=== PATIENT | male | born 1955 | race Caucasian/White ===

== ENCOUNTER 2016-11-22 17:48 | Inpatient (IN) | payer OTHER ==
[2016-11-22] VITALS (8 sets, daily range): BP systolic 78–124; BP diastolic 44–72
[~2016-11-22] VITALS: Ht 175.3 cm; Wt 120.0 kg
--- NOTE | ~2016-11-22 | P ---
[facility] [place] [address] PROCEDURE REPORT Name: BERTIN CERNA Room #: 242-P ADM IN M.R.#: [id number] Admission: 11/22/16 Attend Phys: Flaco Cochran MD Discharge: Date of : 55 Report #: [id number] THIS REPORT FOR: //name// CC: Anibal Holt DATE OF SERVICE: 11/23/2016 PREPROCEDURE DIAGNOSIS: Ulceration with necrotic tissue at the right forearm following IV extravasation. POSTPROCEDURE DIAGNOSIS: Ulceration with necrotic tissue at the right forearm following IV extravasation. PROCEDURE PERFORMED: Surgical full-thickness debridement of necrotic tissue involving the right forearm. DESCRIPTION OF PROCEDURE: The patient was seen in the Intensive Care Unit with his family members and the at the bedside. The patient is unable to verbally consent as he has expressive aphasia. The has verbally consented to local debridement. The right forearm was prepped and draped in the usual sterile fashion and anesthetized with topical 2% lidocaine gel. A timeout procedure was undertaken, the site, the patient, and correct side were positively identified. DICTATION ENDS HERE <ELECTRONICALLY SIGNED> By: Macario Colunga MD 11/25/16 1539 [id number] Macario Colunga MD /nt
--- NOTE | ~2016-11-22 | 2DMMODE ---
[facility] [place] [address] 2 D/M-MODE ECHOCARDIOGRAM Name: BERTIN CERNA Room #: 242-P [facility] IN ..#: [id number] Admission: 11/22/16 Attend Phys: Flaco Cochran, Discharge: Date of : 55 Date of Service: 11/23/16 0804 Report #: [id number] THIS REPORT FOR: //name// APPROVED REPORT Study performed: 11/23/2016 07:13:34 EXAM: Comprehensive 2D, Doppler, and color-flow Echocardiogram Patient Location: ICU Room #: 242 Status: routine BSA: 2.26 HR: 71 bpm BP: 99/66 mmHg Rhythm: NSR Other Information Study Quality: Fair/limited windows/not all measurements taken Technically limited study due to no patient mobility/In ICU on trach/COPD/obesity. Indications Respiratory arrest. Hx: CAD, stents, CVA, COPD 2D Dimensions RVDd: 35.87 mm LVEF(%): 57.34 (>50%) IVSd: 12.89 (7-11mm) LVOT Diam: 21.22 (18-24mm) LVDd: 51.84 mm PWd: 11.91 (7-11mm) LVDs: 36.12 (25-40mm) Aortic Root: 35.38 mm Carlisle's LVEF: 57.34 % Volumes Left Atrial Volume (Systole) Single Plane 4CH: 43.09 mL Aortic Valve AoV Peak Ivan.: 1.49 m/s AO Peak Gr.: 8.89 mmHg LVOT Max P.42 mmHg LVOT Max V: 0.78 m/s JOSE JUAN Vmax: 1.84 cm2 Mitral Valve [facility] [place] [address] [place] [address] 2 D/M-MODE ECHOCARDIOGRAM Name: BERTIN CERNA Room #: 242-P [facility] IN ..#: [id number] Admission: 11/22/16 Attend Phys: Flaco Cochran, Discharge: Date of : 55 Date of Service: 11/23/16 0804 Report #: [id number] E/A Ratio: 1.3 MV Decel. Time: 213.89 ms MV E Max Ivan.: 0.64 m/s MV A Ivan.: 0.51 m/s MV PHT: 62.03 ms IVRT: 55.36 ms Pulmonary Valve PV Peak Ivan.: 1.41 m/s PV Peak Gr.: 8.00 mmHg Tricuspid Valve TR Peak Ivan.: 2.23 m/s RAP Estimate: 15.00 mmHg TR Peak Gr.: 19.93 mmHg PA Pressure: 35.00 mmHg Left Ventricle The left ventricle is normal size. Regional wall motion is not well visualized but grossly normal. There is normal left ventricular wall thickness. Left ventricular systolic function is normal. LVEF is 55%. The left ventricular diastolic function is normal. Right Ventricle The right ventricle is normal size. The right ventricular systolic function is normal. Atria The left atrium size is normal. The right atrium size is normal. Aortic Valve Aortic valve is calcified. No aortic regurgitation is present. There is no aortic valvular stenosis. Mitral Valve The mitral valve is normal in structure. Trace mitral regurgitation. No evidence of mitral valve stenosis. Tricuspid Valve The tricuspid valve is normal in structure. There is trace tricuspid regurgitation. The right atrial pressure is estimated at 15 mmHg. There is mild pulmonary hypertension with an estimated PAP of 35mmHg. Pulmonic Valve Pulmonic valve is not well visualized. [facility] [address] [place] [address] 2 D/M-MODE ECHOCARDIOGRAM Name: BERTIN CERNA Room #: 242-P [facility] IN .R.#: [id number] Admission: 11/22/16 Attend Phys: Flaco Cochran, Discharge: Date of : 55 Date of Service: 11/23/16 0804 Report #: [id number] Great Vessels The aortic root is normal in size. Ascending aorta is not well visualized. IVC is dilated and collapses <50% with inspiration. Pericardium There is no pericardial effusion. <Conclusion> Left ventricular systolic function is normal. Regional wall motion is not well visualized but grossly normal. LVEF is 55%. Normal diastolic function Aortic valve is calcified. No stenosis or insufficiency The mitral valve is normal in structure. No mitral insufficiency Pulmonary artery pressure of 35mmHg There is no pericardial effusion. <ELECTRONICALLY SIGNED> By: Jevon Brown MD, FACC 11/23/16803 3 3 Jevon Brown MD, FAC /INF
--- NOTE | ~2016-11-22 | H ---
[facility] [place] [address] HISTORY AND PHYSICAL Name: BERTIN CERNA Room #: 242-P ADM IN M.R.#: [id number] Admission: 11/22/16 Attend Phys: Flaco Cochran MD Discharge: Date of : 55 Report #: [id number] THIS REPORT FOR: //name// CC: Anibal Holt DATE OF SERVICE: 11/22/2016 ATTENDING PHYSICIAN: Flaco Cochran M.D. PRIMARY CARE PHYSICIAN: Talita Holt M.D., at [facility]. PRIMARY OBSTETRICS GYNECOLOGY MD: Enrique Noriega M.D. at [facility]. CHIEF COMPLAINT: Respiratory failure. HISTORY OF PRESENT ILLNESS: The patient is a 61-year-old male who recently suffered a large stroke and was taken to on 10/23/2016. He was in the ICU for 18 days and required intubation. At one point he was extubated but did get reintubated and then eventually he required a tracheostomy. He was taken to [facility] for acute care rehab on 11/10/2016. Initially, he was weaned off of the vent and was just using a trach shield. His daughter states that within the last 48 hours, he has had some respiratory distress. He started out on Monday on a trach shield and was having intermittent decreased oxygen saturations and required frequent suctioning. She said they were suctioning large amounts of thick albarran secretion. She said they were checking blood gases, but those results are not available on the records that they sent. She noticed in the last 24 hours that he seemed very altered and more lethargic. He did work with physical therapy and occupational therapy and speech therapy yesterday morning and actually was able to sit at the side of the bed with PT. His daughter noticed at that time that while he was sitting up he kept dozing off. By that afternoon, they thought that he was just fatigued, so the daughters left and came back about an hour later and when they walked in the room they stated his blood pressure was in the 40s and his oxygen was in the 40s and they called for help. The daughter states that after trying to get his blood pressure up with IV fluids and other means that the attempts were not successful and they eventually called EMS. He had been alert after his stroke, but did have some residual right sided hemiparesis and dysphagia and expressive aphasia, but he would be alert and try to write and was following all commands prior to this episode of lethargy and altered mental status. In the ER at [place] he was evaluated and his blood pressure did remain low and he has been started on vasopressors, he has been placed back on the ventilator. In the ER, they were suctioning some brown secretions that were reported to look like tube feeding. The daughter states that when he was at that he was treated for pneumonia. She also states that they had been using BiPAP on and off in the last [address] [address] HISTORY AND PHYSICAL Name: BERTIN CERNA Room #: 242-P [facility] IN M.R.#: [id number] Admission: 11/22/16 Attend Phys: Flaco Cochran MD Discharge: Date of : 55 Report #: [id number] She does not think that he was having any fevers. Currently, the family thinks that he is more alert from when prior to transfer, but that he is not back to baseline. 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 PAST SURGICAL PROCEDURES: Coronary stents x 4, tonsillectomy, cataract repair, trach placement, and recent thrombectomy for CVA. ALLERGIES: No known drug allergies. HOME MEDICATIONS: The list from [facility] was reviewed, but the medications have not been entered into the computer at this time. SOCIAL HISTORY: The patient had been living at home with his prior to his stroke. He is a smoker, was smoking 2-5 cigarettes per day prior to his stroke, but had been up to 2 packs per day at one point and he has been smoking since the age of 14. No history of alcohol or drug use. FAMILY HISTORY: Significant for diabetes and heart disease. REVIEW OF SYSTEMS: Unobtainable due to current intubation. PHYSICAL EXAMINATION: GENERAL: The patient is chronically ill-appearing male in no acute distress, currently in ICU on the ventilator. VITAL SIGNS: Temperature is 36.3, heart rate 62, respirations 24, blood pressure 93/54, oxygen 99% on 60% FiO2. HEENT: PERRLA. Sclerae is nonicteric. Oral mucosa is pink and moist. NECK: With trach tube in place and no JVD noted. CARDIOVASCULAR: Normal S1, S2. No murmurs, rubs or gallops. RESPIRATORY: Breath sounds are diminished in the bases, but otherwise clear. He is breathing comfortably with the ventilator. ABDOMEN: Obese, round, nontender, nondistended with hypoactive bowel sounds. VASCULAR: Feet are cool with pedal pulses of 1+ bilaterally. NEUROLOGIC: The patient opens his eyes to sound and follows some commands including hand grasp and giving a thumbs up on his left side, his right side is weak in the arm and leg. There is no facial asymmetry. SKIN: He does have a wound on his right forearm, apparently from a prior IV infiltration and there is no surrounding erythema or active drainage. There is also a stage III decubitus wound just above his gluteal fold. There is no surrounding erythema or drainage. Overall, his skin is pale. GENITOURINARY: He does have a Boston catheter draining clear yellow urine. [address] [address] HISTORY AND PHYSICAL Name: BERTIN CERNA Room #: 242-[facility] IN ..#: [id number] Admission: 11/22/16 Attend Phys: Flaco Cochran MD Discharge: Date of : 55 Report #: [id number] LABORATORY DATA AND DIAGNOSTICS: ABG showed a pH of 7.19, pCO2 of 63, pO2 106 and lactate of 1.07. BNP 211. UA showed 3+ protein, 3+ blood, no leukocyte esterase or wbc's. Sodium 148, potassium 4.8, BUN 126, creatinine 2.9, glucose 296, troponin is negative, WBC 12.7, hemoglobin 8.3, and platelets 29. Chest x-ray showed moderate increased density in the medial bases suggesting atelectasis rather than pneumonitis, Dopplers, as well lower extremities were negative for DVT. CT of the head shows a well defined low density area in the left frontal lobe. This finding is suspicious for a 2.5 cm size primary versus metastatic lesion involving the left frontal lobe. ASSESSMENT AND PLAN: 1. Acute on chronic respiratory failure. Etiology for this is not completely clear. May be due to an aspiration event. Since he is hypotensive, we will consider sepsis and treat with antibiotics that would cover for healthcare-acquired pneumonia. Pulmonary is consulted. Continue with breathing treatments and antibiotics. We will hold off on steroids at this time. Follow up cultures. Follow blood cultures and obtain a sputum culture. The above antibiotics would also cover for aspiration. 2. Altered mental status, likely due to CO2 retention. Mental status is improving. CT of the head showed likely the area of recent stroke, but no bleed. Continue to monitor. 3. Diabetes type 2. Blood sugar is stable. Add sliding scale insulin and Accu-Cheks. 4. Recent large left CVA. The patient does have residual right-sided hemiparesis as well as dysphagia and expressive aphasia. CT did not show any bleed or acute stroke. The patient did have a thrombectomy at , but did not receive TPA because of the timeframe of onset of symptoms. It does not look like he has been on any blood thinners, likely since his platelets are so low. 5. Acute on chronic renal failure. According to the labs from [facility] his creatinine has been elevating in the last week from 1.25 up to 2.9 today. His states that his creatinine normally runs around 2. We will continue with hydration and follow labs. 6. Sepsis secondary to probable pneumonia. Follow blood and sputum cultures, try to wean off Levaquin as able. His white count is mildly elevated. 7. Anemia, no signs of bleeding. He does have very low platelets. Continue to monitor. 8. History of coronary artery disease with prior stents. Troponin is negative. Continue to monitor on telemetry. 9. Wounds. Consult wound care for the right forearm and coccyx wound. 10. Deep venous thrombosis prophylaxis, place sequential compression devices. [facility] [address] [place] [address] HISTORY AND PHYSICAL Name: BERTIN CERNA Room #: 242-P ADM IN M.R.#: [id number] Admission: 11/22/16 Attend Phys: Flaco Cochran MD Discharge: Date of : 55 Report #: [id number] We will continue to follow the patient closely throughout the hospitalization and make changes based on clinical status. <ELECTRONICALLY SIGNED> By: MARY Keller 11/23/16 1003 0558 0658 MARY Keller /rama
--- NOTE | ~2016-11-22 | HC ---
[facility] [place] [address] CONSULTATION Name: BERTIN CERNA Room #: 242-P ADM IN M.R.#: [id number] Admission: 11/22/16 Attend Phys: Flaco Cochran MD Discharge: Date of : 55 Report #: [id number] THIS REPORT FOR: //name// CC: Anibal Holt DATE OF SERVICE: 11/24/2016 HISTORY OF PRESENT ILLNESS: The patient is seen today in the Intensive Care Unit. We had seen him yesterday for necrosis of the right forearm as well as gluteal pressure ulceration. He is currently undergoing a carotid and right upper extremity ultrasound. He is much more alert today, does make eye contact and smiles. PHYSICAL EXAMINATION: VITAL SIGNS: Include pulse rate 71, respiratory rate of 19, blood pressure of 91/53, temperature 98.5. GENERAL: This is a chronically ill-appearing male patient who appears in minimal distress. LUNGS: Diminished. HEART: Regular, without murmur. ABDOMEN: Soft, nontender. EXTREMITIES: I am not able to evaluate the gluteal region today due to the fact that he is currently getting an ultrasound. Examination of the right forearm demonstrates the base is bakeshop cleaner with some minimal amount of slough. CLINICAL IMPRESSION: 1. Ulceration to the right forearm following extravasation of IV, now status post surgical debridement. 2. Stage II gluteal pressure ulceration. 3. History of scrotal pressure ulceration, resolved. RECOMMENDATIONS: Continue with the pressure reducing surface to every 2 hour turning and repositioning. We will place TheraHoney on the right forearm and then a TEDDY wound VAC over the next 5-7 days. Hope, we will see improved granulation and epithelialization here. Recommend moisture barrier cream to the gluteal region, protective boots bilaterally. <ELECTRONICALLY SIGNED> By: Macario Colunga MD 11/25/1622 9 1 Macario Colunga MD /nt
--- NOTE | ~2016-11-22 | HC ---
[facility] [place] [address] CONSULTATION Name: BERTIN CERNA Room #: 242- ADM IN M.R.#: [id number] Admission: 11/22/16 Attend Phys: Flaco Cochran MD Discharge: Date of : 55 Report #: [id number] THIS REPORT FOR: //name// CC: Anibal Holt REASON FOR CONSULTATION: I was asked to evaluate concerning pneumonia and suspected septic shock. HISTORY OF PRESENT ILLNESS: The patient is a 61-year-old with chronic respiratory failure in the setting of COPD, obstructive sleep apnea and recent stroke. On 10/23/2016, the patient suffered a left middle cerebral artery infarct, underwent thrombectomy, has residual right-sided weakness. He had respiratory failure, required tracheostomy and PEG placement. He has failed to wean from the ventilator and was transferred to [facility] on 11/10/2016. There, he has been on BiPAP and trach shield as his weaning program continued. Yesterday, he had worsening condition with decreased mental status and increased work of breathing. His chest x-ray had shown slight left lower lobe infiltrate. This was on 11/21/2016. On 11/22/2016, his white count was normal with unremarkable differential, hemoglobin was 9, platelet count was 41,000, and a creatinine of 2.3. He again had decreased mental status. He had been placed on prednisone and doxycycline earlier in the morning. Now transfers with hypotension and fluctuating mental status. He remains on FIO2 of 80%. No specific aspiration was identified. There has been no nausea or vomiting. He has had soft to loose stool. There has been no gross hematemesis or hematochezia. He has an indwelling Boston catheter with adequate urine output. Blood pressure has been low and he is on 10 mcg of Levophed having weaned down from 20 mcg earlier this morning. The patient was unable to give me further details. He does have some decubiti to the sacrum as well as his right arm wound from previous IV infiltration. ALLERGIES: None known. MEDICATIONS: As noted on his MAY, now including Levaquin, Zosyn and vancomycin. PAST MEDICAL HISTORY: Coronary artery disease, congestive heart failure, hypertension, obstructive sleep apnea, COPD, stroke, diabetes, chronic kidney disease. SOCIAL HISTORY: He is a smoker of cigarettes. No significant alcohol intake. REVIEW OF SYSTEMS: As noted above. PHYSICAL EXAMINATION: VITAL SIGNS: Afebrile and hemodynamically improved on his Levophed drip. Heart rate is 75, blood pressure 99/60 with a MAP of 72. He is now on FiO2 of 60%. [address] [address] CONSULTATION Name: BERTIN CERNA Room #: 242-P ADM IN M.R.#: [id number] Admission: 11/22/16 Attend Phys: Flaco Cochran MD Discharge: Date of : 55 Report #: [id number] He has had 5.5 liters in with about 200 mL of urine output. Urine output seems to have improved in last 6-8 hours. GENERAL: He was awake, but not following commands consistently. HEENT: Unremarkable. Tracheostomy was unremarkable. LUNGS: Coarse posteriorly. HEART: Regular, without murmur. ABDOMEN: Soft. His PEG site has some drainage from the exit fistula, but no surrounding induration or erythema. External genitalia unremarkable with indwelling Boston catheter. EXTREMITIES: He had a wound to his right forearm and to his sacral region. Extremities, otherwise unremarkable. LABORATORY STUDIES: Sodium 143, potassium 4.1, bicarbonate 24, creatinine 2.3, bilirubin 0.3, alkaline phosphatase 76, AST 27, ALT 34, albumin 1.5. Troponin negative. BNP was 211. Fibrinogen 413. INR of 1.1. White count initially was 12.7 with 3% bands, now 8.0 with 5% bands. Hemoglobin 7.3, platelet count 30,000. Procalcitonin of 14.9. Urinalysis; no wbc's, many rbc's, no bacteria seen. ABGs on 60%, pO2 117, pCO2 of 51, pH 7.3. Blood, urine and sputum are pending. Urine antigens for legionella and strep pneumo negative. CT scan of the head, low density in the left frontal lobe concerning for a subcortical mass with adjacent edema. Chest x-ray; vascular prominence, basilar atelectasis and infiltrates. IMPRESSION: A 61-year-old with recent stroke and respiratory failure that was weaning from the ventilator reasonably well until yesterday where he had decreased mental status and developed shock state. Although he has had mild leukocytosis, this has corrected and he still has anemia and thrombocytopenia, etiology of which is yet to be determined whether this is disseminated intravascular coagulation. This would be most likely considering I am not finding a specific drug that would be causing this change. He does have basilar infiltrates and has had increased oxygen requirement consistent with healthcare-associated pneumonia. His encephalopathy is likely a combination of his previous stroke along with toxic metabolic encephalopathy from his infection. RECOMMENDATIONS: We will continue with broad antibiotic coverage. I would like to avoid Zosyn due to his thrombocytopenia and Levaquin due to risk of seizure activity, considering his recent stroke. We will obtain MRSA screen and await blood and sputum culture results. He will stay on broad IV antibiotic therapy pending further studies. I have discussed the case with nursing at the bedside. <ELECTRONICALLY SIGNED> By: Tyrell Carrington MD 11/24/16 0850 1242 [id number] Tyrell Carrington MD /nt
--- NOTE | ~2016-11-22 | EKG ---
[address] [address] ELECTROCARDIOGRAM REPORT Name: JEREMIAH CERNAJACQUIE Room #: 242-P ADM IN M.R.#: [id number] Admission: 11/22/16 Attend Phys: Flaco Cochran MD Discharge: Date of : 55 Report #: [id number] THIS REPORT FOR: //name// [facility] ED Test Date: 2016-11-22 Test Time: 17:53:16 Pat Name: BERTIN CERNA Department: Room: 242 Gender: M Online [employer]: [id number] : 1955 Requested By: Caterina Rogers Order Number: [id number] MD: Jevon Brown Measurements Intervals [place] Rate: 61 P: 65 PA: 153 QRS: 56 QRSD: 135 T: 19 QT: 444 QTc: 448 Interpretive Statements Sinus rhythm IVCD No previous ECG available for comparison Electronically Signed On 11-23-2016 8:09:19 CDT by Jevon Brown [email or web address] <ELECTRONICALLY SIGNED> By: Jevon Brown MD, [facility] 11/23/16 0809 1753 1753 Jevon Brown MD, FACC /EPI
--- NOTE | ~2016-11-22 | EEG ---
[facility] [place] [address] ELECTROENCEPHALOGRAM Name: BERTIN CERNA Room #: 242-P ADM IN M.R.#: [id number] Admission: 11/22/16 Attend Phys: Flaco Cochran MD Discharge: Date of : 55 Report #: [id number] THIS REPORT FOR: //name// CC: Anibal Holt DATE OF SERVICE: 11/23/2016 This patient is being evaluated for altered mental status. EEG was done by placing the electrodes by standard 10-20 system of electrode placement. Both referential and sequential montages were used for recording. Background activity in this patient's EEG is about 6-7 Hz and 15 microvolt. The activity is suppressed throughout the record, but on occasion it becomes even slower and that may indicate . Photic stimulation is unremarkable throughout the record, no active epileptiform activity was noticed. IMPRESSION: This patient's EEG is significantly suppressed and poorly formed. That is a nonspecific abnormality which can occur with dementia, encephalopathy, effect of psychotropic medication, drowsiness, etc. Clinical correlation is recommended. Thank you very much for this referral. By: 0749 0758 Adis Zazueta MD /nt
--- NOTE | ~2016-11-22 | P ---
[facility] [place] [address] PROCEDURE REPORT Name: BERTIN CERNA Room #: 242-P [facility] IN M.R.#: [id number] Admission: 11/22/16 Attend Phys: Flaco Cochran MD Discharge: Date of : 55 Report #: [id number] THIS REPORT FOR: //name// CC: Anibal Holt DATE OF SERVICE: 11/23/2016 PROCEDURE: Sharp full-thickness surgical debridement, necrotic ulceration, right forearm. PREPROCEDURE DIAGNOSIS: Ulceration with necrosis, right forearm following IV extravasation. POSTPROCEDURE DIAGNOSIS: Ulceration with necrosis, right forearm following IV extravasation. DESCRIPTION OF PROCEDURE: After appropriate consent with the patient's at bedside, the wound area was prepped and draped in usual sterile fashion and anesthetized with topical 2% lidocaine gel. Time-out was taken, correct site and the patient were identified. I then proceeded with a #15 bladed scalpel and performed sharp full-thickness debridement down to healthy clean and bleeding tissue, removing all necrotic tissue from the wound base. Preprocedure measurements were 4.0 x 2.5 x 0.0 cm. Postprocedure 4.0 x 2.5 x 0.2 cm. The bleeding was approximately 4 mL. Hemostasis was controlled with direct pressure. The patient tolerated the procedure well and the postoperative dressing was applied. <ELECTRONICALLY SIGNED> By: Macario Colunga MD 11/25/16 0922 [id number] Macario Colunga MD /nt
--- NOTE | ~2016-11-22 | HC ---
[facility] [place] [address] CONSULTATION Name: BERTIN CERNA Room #: 242-P [facility] IN M.R.#: [id number] Admission: 11/22/16 Attend Phys: Flaco Cochran MD Discharge: Date of : 55 Report #: [id number] THIS REPORT FOR: //name// CC: Anibal Holt DATE OF SERVICE: 11/23/2016 CHIEF COMPLAINT: Multiple pressure ulcerations and ulceration to the right arm. HISTORY OF PRESENT ILLNESS: This is a 61-year-old white male patient with a history of known coronary artery disease who suffered a stroke in early October. He was admitted at [facility]. He required intubation, mechanical ventilation and subsequent tracheostomy. After a stay at , he was transferred to [facility]. He has been admitted here for ongoing respiratory issues. His stroke left him with right hemiparesis. Apparently while at , developed an extravasation of his IV and has some necrosis on the skin on the dorsal aspect of his right forearm. He has also had some areas of pressure concern on his buttocks and the concern about a penile ulceration. The patient is not able to answer any questions for himself. His is in the room with him. The patient is on a respirator with mechanical ventilation. He has an expressive aphasia since his stroke in October. PAST MEDICAL HISTORY: Positive for known coronary artery disease with a history of an [place] at age 35, recent stroke, respiratory failure requiring mechanical ventilation, COPD, chronic kidney disease, sleep apnea, hypertension, diabetes mellitus, obstructive sleep apnea. ALLERGIES: None. MEDICATIONS: Medical list has been thoroughly reviewed. SOCIAL HISTORY: The patient has a long history of smoking cigarettes, had been recently cutting down. No history of significant alcohol use. FAMILY HISTORY: Positive for diabetes and heart disease. REVIEW OF SYSTEMS: Unobtainable due to the patient's condition, being on a respirator and having aphasia. PHYSICAL EXAMINATION: VITAL SIGNS: At this time include pulse rate 62, blood pressure of 110/58, temperature 98.5. GENERAL: This is a chronically ill-appearing male patient who does make eye contact and appears to be in no distress. [facility] [address] [place] [address] CONSULTATION Name: BERTIN CERNA Room #: 242-P [facility] IN M.R.#: [id number] Admission: 11/22/16 Attend Phys: Flaco Cochran MD Discharge: Date of : 55 Report #: [id number] HEENT: Head normocephalic. Nose and throat clear. NECK: Demonstrates a tracheostomy in place. He is being mechanically ventilated. LUNGS: Diminished. HEART: Regular rhythm. ABDOMEN: Soft, obese, nontender. EXTREMITIES: Demonstrate 2+ edema upper and lower extremities. SKIN: Examination of the right forearm demonstrates an area of necrosis on the dorsal aspect of the right forearm with some necrotic tissue and eschar present. This area has been debrided sharply with topical anesthesia. Please see separate procedure note regarding surgical debridement of that area. Examination of the gluteal region demonstrates what appears to be some minor erythema that is nonblanching to the gluteal region. There might be a small amount of breakdown, at most it should be a stage 2 type pressure ulceration. No tunneling, undermining or infection noted at this time. Genitourinary region demonstrates a Boston catheter in place. There is no obvious ulceration, perhaps an area that is healed on the left portion of the scrotum, but once again nothing open or infected. Heels seem a little bit boggy, but are otherwise intact. NEUROLOGIC: The patient is awake. He does make eye contact. He has a dense right hemiplegia and he is aphasic. LABORATORY DATA: Includes sodium 145, potassium 4.4, chloride 111, CO2 27, BUN 116, creatinine 2.7, glucose 168. White blood cell count is 8.0 with a hemoglobin of 7.3, hematocrit of 22.2, platelet count 30,000. CLINICAL IMPRESSION: 1. Dermal necrosis of the right forearm following extravasation of an IV site, now status post surgical debridement at bedside. 2. Stage 2 gluteal pressure ulceration. 3. History of penile ulceration versus scrotal ulceration, which appears to be cleared. 4. Respiratory failure requiring mechanical ventilation and tracheostomy. 5. Diabetes mellitus. 6. Coronary artery disease. 7. Cerebrovascular accident with dense right hemiparesis and expressive aphasia. RECOMMENDATIONS: At this point in time, we will recommend topical Medihoney and gauze to the right forearm to be changed daily initially. We will recommend moisture barrier cream to the sacral gluteal region and he will need to be turned and repositioned, specialized bed surfaces as well as PRAFO boots to both lower extremities. He is at risk for heel-cord contracture on the right side, he may require an ankle foot orthotic at some point in time. Continue with [facility] [address] [place] [address] CONSULTATION Name: BERTIN CERNA Room #: 242-P ADM IN Amina.#: [id number] Admission: 11/22/16 Attend Phys: Flaco Cochran MD Discharge: Date of : 55 Report #: [id number] aggressive nutritional support. All questions have been answered with family members at the bedside. I appreciate being asked to see him in consultation. <ELECTRONICALLY SIGNED> By: Macario Colunga MD 11/24/16 1234 [id number] Macario Colunga MD /nt
--- NOTE | ~2016-11-22 | S ---
[facility] [place] [address] SURGICAL PATH RPT PROCEDURE Name: BERTIN CERNA Room #: 242-P [facility] IN M.R.#: [id number] Admission: 11/22/16 Date of : 55 Discharge: 11/25/16 Report #: [id number] Path Case #: [id number] PATHOLOGY REPORT COLLECTION DATE: 11/25/2016 RECEIVED DATE: 11/28/2016 SUBMITTING PHYS: Dr. Chiara Rodriguez OTHER PHYS: Dr. Anibal Mckeon SPECIMEN(S) RECEIVED: A.Peripheral smear * * * * * * * * * * * * FINAL DIAGNOSIS: Peripheral blood smear: - Severe normocytic anemia, neutrophilia and moderate thrombocytopenia. (see comment). COMMENT: Overall, the peripheral blood has severe normocytic anemia, mild neutrophilia and moderate thrombocytopenia. The etiology of the findings is unclear based entirely on slide review. Potential causes of normocytic anemia include anemia of chronic disease, treated and/or compensated by vitamin mineral deficiency, blood loss and primary bone marrow disorders. The neutrophilia is likely related to the patient's underlying medical condition. Potential causes of thrombocytopenia include immune and nonimmune platelet destruction, drug and/or toxic exposures, dilutional and primary bone marrow disorders. Correlation with clinical history and additional laboratory data is recommended. (CLW:doni; 11/28/2016) PATHOLOGIST: Brittany Street M.D. REPORT ELECTRONICALLY SIGNED BY: Brittany Street M.D. DATE/TIME: 11/28/2016 22:57 * * * * * * * * * * * * MICROSCOPIC DESCRIPTION: CBC Data (11/25/16): WBC 10,100/ uL, RBC 2.67, hemoglobin 8.2 g/dL, hematocrit 24.7%, MCV 92.2 fL, MCH 30.7 pg, MCHC 33.3 g/dL, RDW 16.4%. Platelet count 73,000/uL. Manual white blood cell differential: segs 87%, lymphs 10%, monos 2%, and eos 1%. Peripheral Blood Smear: Cytomorphological examination of the Morales's stained peripheral blood smear confirms the provided data. Red blood cells show severe normocytic anemia with [id number] anisopoikilocytosis. No schistocytes or microspherocytes are seen. White blood cells are [address] [address] SURGICAL PATH RPT PROCEDURE Name: BERTIN CERNA Room #: 242-P [facility] IN M.R.#: [id number] Admission: 11/22/16 Date of : 55 Discharge: 11/25/16 Report #: [id number] Path Case #: [id number] borderline mildly increased in number. They are predominantly segmented neutrophils and are without significant dyspoiesis or significant left shift. Lymphocytes are predominantly small, round, and mature appearing with condensed chromatin and scant cytoplasm with admixed large granular lymphocytes. On scanning, no markedly atypical lymphoid cells are seen. Monocytes are mature. Platelets are moderately decreased in number and mainly normal in morphology with rare larger platelets noted. GROSS PATHOLOGY: Received is one Morales stained peripheral blood smear, labeled, Bertin Cerna. CLINICAL HISTORY: This is a 61-year-old man with anemia and thrombocytopenia. Morphologic review of the peripheral blood smear is requested by the patient's physician. INITIAL CPT CODE(S): A; [place] Professional services performed by [facility] at [place] [address], [place] [address] Technical services performed by [facility] at [address] [place] [address], [address], [place] [address]. [facility] [address] [place] [address] PHONE: [phone] DIRECTOR: Aramis Diallo M.D. * * * END OF REPORT * * *
--- NOTE | ~2016-11-22 | HC ---
[facility] [place] [address] CONSULTATION Name: BERTIN CERNA Room #: 242- ADM IN M.R.#: [id number] Admission: 11/22/16 Attend Phys: Flaco Cochran MD Discharge: Date of : 55 Report #: [id number] THIS REPORT FOR: //name// CC: Anibal Holt DATE OF SERVICE: 11/22/2016 IMPRESSION: 1. Acute respiratory failure. 2. Acute hypercapnic respiratory failure. 3. Encephalopathy. 4. History of acute on chronic kidney disease, seen by Dr. Bauer. 5. History of recent status post cerebrovascular accident with thrombectomy at . 6. Hypertension. 7. Coronary artery disease. 8. Obstructive sleep apnea, treated by Dr. Byrd. 9. History of chronic obstructive pulmonary disease. PLAN: We will place on Zosyn and vancomycin. We will do sepsis workup and CT head. We will also evaluate legs. Awaiting CBC and CMP. We will leave on ventilator for now, increase rate and tidal volume. HISTORY OF PRESENT ILLNESS: A 61-year-old male transferred to [facility] from . Per chart, left MCA infarct, underwent thrombectomy with residual weakness, had extubation and re-intubation, required tracheostomy and PEG tube. He was transferred to [facility] for further weaning, has been on and off BiPAP there. Yesterday, received a dose of Lasix for a chest x-ray, which showed question CHF. Today, the patient saw speech therapy and was doing okay. Family left to eat and came back and decreased status and transferred to [place]. I have discussed with today regarding this. He is not at baseline. PAST MEDICAL HISTORY: Per chart includes coronary artery disease status post stent, CHF, hypertension, CLAUDIA, COPD, and CVA, sees Dr. Noriega for cardiology. ALLERGIES: No known. MEDICATIONS: From medication sheet from [facility] include DuoNeb, allopurinol, Brovana, aspirin, Lipitor, budesonide, received Lasix 40 mg yesterday, Coreg 37.5 q.12 hours, cholecalciferol, Colace, doxazosin, Lovenox 40, Zetia, Pepcid, Tricor, Flonase, insulin, losartan, melatonin, nystatin, [place]-3, paroxetine, and hydrocodone. PAST SURGICAL HISTORY: Include heart stent, tonsillectomy, and appendectomy. [address] [address] CONSULTATION Name: BERTIN CERNA Room #: 242-P [facility] IN M.R.#: [id number] Admission: 11/22/16 Attend Phys: Flaco Cochran MD Discharge: Date of : 55 Report #: [id number] SOCIAL HISTORY: . Positive tobacco in the past. Negative ETOH addiction per chart. REVIEW OF SYSTEMS: Unobtainable. PHYSICAL EXAMINATION: VITAL SIGNS: Blood pressure initially 100/44, pulse 56, and respirations 16. EYES: Negative icterus. NECK: Negative JVD. Trach in place. LUNGS: Coarse bilaterally. HEART: Bradycardic. ABDOMEN: Bowel sounds present. EXTREMITIES: Showed positive edema. LABORATORY DATA: White count yesterday was 10.6, hemoglobin 9.1, and platelets 41. Glucose 207, sodium 148, potassium 5, and calcium 7.8. BUN 63 and creatinine 1.37 on 11/19/2016. Now, BUN 105 and creatinine 2.3. By: [id number] Anibal Mckeon MD /nt
[2016-11-22 18:44] LABS: ABG SAMPLE TYPE ARTERIAL; HCO3 29.8 mmol/L (22.0-26.0); O2(CT) 12.4 mL/dL (15.0-23.0); O2Hb 93.7 % (92.0-98.0); PCO2 75.3 mmHg (35.0-45.0); PO2 85.9 mmHg (80.0-100.0); sO2 94.1 % (92.0-98.0); tCO2 32.2 mmol/L (24.0-30.0)
[2016-11-22 18:45] LABS: STICK SITE R.BRACHIAL; TIDAL VOLUME 500 ml; pH 7.216 (7.360-7.450)
[2016-11-22 19:24] LABS: HEMATOCRIT 26.7 % (42.0-52.0); HEMOGLOBIN 8.3 gm/dL (14.0-18.0); MCH 29.7 pg (26.0-34.0); MCHC 31.2 g/dL (28.0-37.0); MCV 95.2 fL (80.0-100.0); RDW 16.4 % (10.5-14.5); WBC 12.7 thou/uL (4.0-11.0)
[2016-11-22 19:25] LABS: MANUAL DIFF YES
[2016-11-22] MEDS ORDERED: CYMBALTA60 MG PO (19:30)
[2016-11-22] MEDS ORDERED: AMBIEN 5 MG TABL5 M1 PO (19:30)
[2016-11-22] MEDS ORDERED: FLOMAX0.4 MG PO (19:30)
[2016-11-22] MEDS ORDERED: CATAPRES0.2 MG PO (19:31)
[2016-11-22] MEDS ORDERED: LASIX 40 MG TAB40 M2 PO (19:31)
[2016-11-22] MEDS ORDERED: GABAPENTIN 100100 MG PO (19:32)
[2016-11-22] MEDS ORDERED: HYDRALAZINE 2525 MG PO (19:32)
[2016-11-22] MEDS ORDERED: CLARITIN10 MG PO (19:33)
[2016-11-22] MEDS ORDERED: LOVASTATIN 20 M20 MG PO (19:33)
[2016-11-22] MEDS ORDERED: LANTUS100 UNIT/M SUBQ (19:33)
[2016-11-22 19:34] LABS: ANION GAP 5 mmol/L (7-16); BUN 126 mg/dL (7-18); CALCIUM 7.6 mg/dL (8.5-10.1); CHLORIDE 111 mmol/L (98-107); CO2 32 mmol/L (21-32); CREATININE 2.9 mg/dL (0.7-1.3); GLUCOSE 296 mg/dL (74-106); POTASSIUM 4.8 mmol/L (3.5-5.1); SODIUM 148 mmol/L (136-145)
[2016-11-22] MEDS ORDERED: METFORMIN HCL500 MG PO (19:34)
[2016-11-22] MEDS ORDERED: LOPRESSOR50 PO (19:36)
[2016-11-22] MEDS ORDERED: EFFER-K 20 MEQ20 ME1 PO (19:37)
[2016-11-22] MEDS ORDERED: RANITIDINE 150150 M1 PO ×2 (19:38→19:39)
[2016-11-22] MEDS ORDERED: LEVSIN0.125 MG PO (19:40)
[2016-11-22] MEDS ORDERED: HYDROCODONE-AP1 EAC6 PO (19:40)
[2016-11-22 19:43] LABS: TROPONIN-I < 0.04 ng/mL (<0.04-0.07)
[2016-11-22 19:50] LABS: PLATELET COUNT 29 thou/uL (150-400)
[2016-11-22 19:59] LABS: ABG SAMPLE TYPE ARTERIAL; BE(vivo) -4.2 mmol/L (-2 to +3); LACTATE 1.07 mmol/L (0.5-2.0); O2(CT) 11.6 mL/dL (15.0-23.0); O2Hb 95.4 % (92.0-98.0); PCO2 63.1 mmHg (35.0-45.0); PO2 106.5 mmHg (80.0-100.0); STICK SITE L.RADIAL; TIDAL VOLUME 550 ml; pH 7.198 (7.360-7.450); sO2 96.5 % (92.0-98.0); tCO2 25.9 mmol/L (24.0-30.0)
[2016-11-22 20:00] LABS: ABSOLUTE NEUTROPHILS 11.3 thou/uL (1.4-8.2); TOTAL CELL COUNT 100
[2016-11-22 20:01] LABS: ANISOCYTOSIS 1+
[2016-11-22 20:21] LABS: URINE BILIRUBIN NEGATIVE (Negative); URINE BLOOD 3+ (Negative); URINE COLOR YELLOW; URINE GLUCOSE-RANDOM* 1+ (Negative); URINE KETONES TRACE (Negative); URINE LEUKOCYTES-REFLEX NEGATIVE (Negative); URINE PROTEIN (DIPSTICK) 3+ (Negative); URINE SPECIFIC GRAVITY >= 1.030 (1.003-1.035)
[2016-11-22 20:26] LABS: SQUAMOUS 4-10 Moderate /LPF (0-3); URINE RBC >20 Many /HPF (0-2); URINE WBC-REFLEX None Seen /HPF (0-5)
[2016-11-22 20:27] LABS: CRYSTALS None Seen /LPF (None Seen)
[2016-11-23] VITALS (97 sets, daily range): BP systolic 70–130; BP diastolic 44–95
[2016-11-23] MEDS ORDERED: CARVEDILOL12.5 MG PO (00:25)
[2016-11-23 05:25] LABS: HEMOGLOBIN 8.5 gm/dL (14.0-18.0); RBC 2.83 mil/uL (4.50-6.00); WBC 7.4 thou/uL (4.0-11.0)
[2016-11-23 05:27] LABS: HEMATOCRIT 26.6 % (42.0-52.0); MCHC 31.9 g/dL (28.0-37.0); MCV 94.1 fL (80.0-100.0); PLATELET COUNT 31 thou/uL (150-400); RDW 16.2 % (10.5-14.5)
[2016-11-23 05:29] LABS: MANUAL DIFF YES
[2016-11-23 05:31] LABS: ABG SAMPLE TYPE ARTERIAL; BE(vivo) -1.4 mmol/L (-2 to +3); HCO3 25.1 mmol/L (22.0-26.0); LACTATE 1.08 mmol/L (0.5-2.0); O2(CT) 13.1 mL/dL (15.0-23.0); O2Hb 97.2 % (92.0-98.0); PCO2 51.1 mmHg (35.0-45.0); PO2 117.3 mmHg (80.0-100.0); sO2 97.9 % (92.0-98.0); tCO2 26.7 mmol/L (24.0-30.0)
[2016-11-23 05:32] LABS: STICK SITE L.RADIAL; TIDAL VOLUME 550 ml; VDS A/C 24 cc; pH 7.309 (7.360-7.450)
[2016-11-23 05:34] LABS: ALBUMIN 1.5 g/dL (3.4-5.0); CALCIUM 7.4 mg/dL (8.5-10.1); CREATININE 2.6 mg/dL (0.7-1.3); POTASSIUM 5.1 mmol/L (3.5-5.1); TOTAL BILIRUBIN 0.3 mg/dL (<0.1-1.0); TOTAL PROTEIN 5.1 g/dL (6.4-8.2)
[2016-11-23 08:19] LABS: ABSOLUTE NEUTROPHILS 5.8 thou/uL (1.4-8.2); ANISOCYTOSIS 1+; TOTAL CELL COUNT 100
[2016-11-23 10:27] LABS: HEMATOCRIT 22.2 % (42.0-52.0); HEMOGLOBIN 7.3 gm/dL (14.0-18.0); MCH 30.6 pg (26.0-34.0); MCHC 32.9 g/dL (28.0-37.0); MCV 93.2 fL (80.0-100.0); RBC 2.39 mil/uL (4.50-6.00); RDW 16.9 % (10.5-14.5)
[2016-11-23 10:28] LABS: MANUAL DIFF YES
[2016-11-23 10:35] LABS: CALCIUM 6.2 mg/dL (8.5-10.1); CREATININE 2.3 mg/dL (0.7-1.3); POTASSIUM 4.1 mmol/L (3.5-5.1)
[2016-11-23 10:43] LABS: ABSOLUTE NEUTROPHILS 6.6 thou/uL (1.4-8.2); ANISOCYTOSIS 1+; POLYCHROMASIA OCCASIONAL; TOTAL CELL COUNT 100
[2016-11-23 10:45] LABS: APTT 33.9 Seconds (24.5-32.8); FIBRINOGEN 413.5 mg/dL (210-360); INR 1.1; PROTIME 11.4 Seconds (9.3-11.4)
[2016-11-23 11:49] LABS: ABG SAMPLE TYPE VENOUS; BE(vivo) 0 mmol/L (-2 to +3); HCO3 25.9 mmol/L (22.0-26.0); O2(CT) 7.2 mL/dL (15.0-23.0); O2Hb VENOUS 64.3 (65.0-85.0); PO2 VENOUS 33.5 mmHg (35.0-45.0); sO2 VENOUS 60.2 % (65.0-85.0); tCO2 27.4 mmol/L (24.0-30.0)
[2016-11-23 11:50] LABS: STICK SITE LINE
[2016-11-23 11:59] LABS: PLATELET COUNT 30 thou/uL (150-400)
[2016-11-23 14:31] LABS: CALCIUM 6.5 mg/dL (8.5-10.1); CREATININE 2.5 mg/dL (0.7-1.3); POTASSIUM 4.2 mmol/L (3.5-5.1)
[2016-11-23 14:32] LABS: APTT 31.3 Seconds (24.5-32.8); FIBRINOGEN 424.2 mg/dL (210-360)
[2016-11-23 18:36] LABS: CALCIUM 7.2 mg/dL (8.5-10.1); CREATININE 2.7 mg/dL (0.7-1.3); POTASSIUM 4.4 mmol/L (3.5-5.1)
[2016-11-23 18:43] LABS: APTT 32.1 Seconds (24.5-32.8); FIBRINOGEN 485.8 mg/dL (210-360)
[2016-11-23 20:38] LABS: ABG SAMPLE TYPE ARTERIAL; BE(vivo) 0.8 mmol/L (-2 to +3); HCO3 26.4 mmol/L (22.0-26.0); LACTATE 0.92 mmol/L (0.5-2.0); O2(CT) 11.7 mL/dL (15.0-23.0); O2Hb 96.1 % (92.0-98.0); PCO2 47.4 mmHg (35.0-45.0); PO2 105.1 mmHg (80.0-100.0); pH 7.364 (7.360-7.450); sO2 97.6 % (92.0-98.0); tCO2 27.9 mmol/L (24.0-30.0)
[2016-11-23 20:39] LABS: STICK SITE L.RADIAL; TIDAL VOLUME 550 ml
[2016-11-24] VITALS (61 sets, daily range): BP systolic 82–169; BP diastolic 53–99
[2016-11-24 05:15] LABS: ABG SAMPLE TYPE ARTERIAL
[2016-11-24 05:20] LABS: BE(vivo) -1.7 mmol/L (-2 to +3); LACTATE 0.96 mmol/L (0.5-2.0); O2(CT) 10.8 mL/dL (15.0-23.0); O2Hb 96.6 % (92.0-98.0); PCO2 38.2 mmHg (35.0-45.0); PO2 116.5 mmHg (80.0-100.0); pH 7.397 (7.360-7.450); sO2 98.3 % (92.0-98.0); tCO2 24.1 mmol/L (24.0-30.0)
[2016-11-24 05:21] LABS: STICK SITE L.RADIAL; TIDAL VOLUME 550 ml
[2016-11-24 07:41] LABS: HEMOGLOBIN 7.5 gm/dL (14.0-18.0); PLATELET COUNT 48 thou/uL (150-400); WBC 8.1 thou/uL (4.0-11.0)
[2016-11-24 07:43] LABS: HEMATOCRIT 22.8 % (42.0-52.0); MCH 30.4 pg (26.0-34.0); MCHC 32.9 g/dL (28.0-37.0); MCV 92.7 fL (80.0-100.0); RBC 2.46 mil/uL (4.50-6.00); RDW 16.6 % (10.5-14.5)
[2016-11-24 07:46] LABS: MANUAL DIFF YES
[2016-11-24 07:54] LABS: ALBUMIN 1.4 g/dL (3.4-5.0); CALCIUM 7.1 mg/dL (8.5-10.1); CREATININE 2.6 mg/dL (0.7-1.3); POTASSIUM 4.2 mmol/L (3.5-5.1); TOTAL BILIRUBIN 0.2 mg/dL (<0.1-1.0); TOTAL PROTEIN 4.8 g/dL (6.4-8.2)
[2016-11-24 09:05] LABS: ABSOLUTE NEUTROPHILS 6.6 thou/uL (1.4-8.2); ANISOCYTOSIS 1+; TOTAL CELL COUNT 100
[2016-11-25] VITALS (23 sets, daily range): BP systolic 116–166; BP diastolic 65–90
[2016-11-25 05:09] LABS: CALCIUM 7.1 mg/dL (8.5-10.1); POTASSIUM 3.7 mmol/L (3.5-5.1)
[2016-11-25 08:12] LABS: HEMATOCRIT 24.5 % (42.0-52.0); HEMOGLOBIN 8.1 gm/dL (14.0-18.0); MCH 30.7 pg (26.0-34.0); MCHC 33.3 g/dL (28.0-37.0); MCV 92.3 fL (80.0-100.0); RBC 2.65 mil/uL (4.50-6.00); RDW 16.6 % (10.5-14.5); WBC 10.1 thou/uL (4.0-11.0)
[2016-11-25 23:08] LABS: HEPATITIS C VIRUS AB 0.1 (0.0-0.9)
== END 2016-11-25 15:45 | disposition short-term general hospital (02) | DRG 853 ==
LOC: ER 17:48 → EROBS 21:10 → ICU 21:10
PROVIDERS: Emergency Medicine; Internal Medicine Hematology & Oncology; Internal Medicine Pulmonary Disease
PROC: 5A1945Z Respiratory Ventilation, 24-96 Consecutive Hours (ICD-10-PCS; principal; 2016-11-22)
PROC: 0BH17EZ Insertion of Endotracheal Airway into Trachea, Via Natural or Artificial Opening (ICD-10-PCS; 2016-11-22)
PROC: 02HV33Z Insertion of Infusion Device into Superior Vena Cava, Percutaneous Approach (ICD-10-PCS; 2016-11-22)
PROC: 0JBG0ZZ Excision of Right Lower Arm Subcutaneous Tissue and Fascia, Open Approach (ICD-10-PCS; 2016-11-23)
DX: A41.9 Sepsis, unspecified organism (principal); J69.0 Pneumonitis due to inhalation of food and vomit; G93.40 Encephalopathy, unspecified; J96.21 Acute and chronic respiratory failure with hypoxia; E43 Unspecified severe protein-calorie malnutrition; R65.21 Severe sepsis with septic shock; N17.9 Acute kidney failure, unspecified; E87.2 Acidosis; I13.0 Hypertensive heart and chronic kidney disease with heart failure and stage 1 through stage 4 chronic kidney disease, or unspecified chronic kidney disease; N18.4 Chronic kidney disease, stage 4 (severe); E87.0 Hyperosmolality and hypernatremia; I69.351 Hemiplegia and hemiparesis following cerebral infarction affecting right dominant side; E86.0 Dehydration; I25.10 Atherosclerotic heart disease of native coronary artery without angina pectoris; G47.33 Obstructive sleep apnea (adult) (pediatric); J44.9 Chronic obstructive pulmonary disease, unspecified; I50.9 Heart failure, unspecified; E11.22 Type 2 diabetes mellitus with diabetic chronic kidney disease; F17.210 Nicotine dependence, cigarettes, uncomplicated; D64.9 Anemia, unspecified; D69.6 Thrombocytopenia, unspecified; L89.302 Pressure ulcer of unspecified buttock, stage 2; F32.9 Major depressive disorder, single episode, unspecified; L98.499 Non-pressure chronic ulcer of skin of other sites with unspecified severity; R13.10 Dysphagia, unspecified; N48.5 Ulcer of penis; B96.1 Klebsiella pneumoniae [K. pneumoniae] as the cause of diseases classified elsewhere; Z79.899 Other long term (current) drug therapy; Z95.5 Presence of coronary angioplasty implant and graft; Z90.49 Acquired absence of other specified parts of digestive tract; I25.2 Old myocardial infarction; Z83.3 Family history of diabetes mellitus; Z82.49 Family history of ischemic heart disease and other diseases of the circulatory system; I69.320 Aphasia following cerebral infarction; I69.391 Dysphagia following cerebral infarction; Z68.39 Body mass index [BMI] 39.0-39.9, adult; Z98.49 Cataract extraction status, unspecified eye
CPT/HCPCS: 10078; 27000